=== PATIENT | female | born 1975 | race Caucasian/White ===

== ENCOUNTER 2018-08-01 08:29 | Emergency (ER) | payer OTHER ==
[~2018-08-01] VITALS: Ht 160 cm; Wt 70.8 kg
[~2018-08-01 08:29] MED LIST: MOTRIN800 MG PO; NEURONTIN300 MG PO
[2018-08-01] MEDS ORDERED: CLEOCIN HCL300 MG (08:55)
[2018-08-01] MEDS ORDERED: STERILE SALINE126 ML (08:55)
== END 2018-08-01 15:33 | disposition home or self-care (01) ==
LOC: ER 08:29
DX: K52.9 Noninfective gastroenteritis and colitis, unspecified (principal)

== ENCOUNTER 2019-08-25 08:23 | Emergency (ER) | payer OTHER ==
[~2019-08-25] VITALS: Ht 160 cm; Wt 75.3 kg
[~2019-08-25 08:23] MED LIST changes: +CLEOCIN HCL300 MG; +STERILE SALINE126 ML
== END 2019-08-25 11:19 | disposition home or self-care (01) ==
LOC: ER 08:23
DX: K58.9 Irritable bowel syndrome, unspecified (principal)

== ENCOUNTER 2022-06-19 18:49 | Emergency (ER) | payer OTHER ==
[~2022-06-19] VITALS: Ht 160 cm; Wt 77.1 kg
[2022-06-20] MEDS ORDERED: LEVSIN/SL0.125 MG SL (02:13)
[2022-06-20] MEDS ORDERED: ZOFRAN8 MG PO (02:13)
[2022-06-20] MEDS ORDERED: PEPCID40 MG PO (02:13)
[2022-06-20] MEDS ORDERED: INTESTINEX680 M1 PO (02:13)
== END 2022-06-20 02:20 ==
LOC: ER 18:49
DX: K52.9 Noninfective gastroenteritis and colitis, unspecified (principal)

== ENCOUNTER 2024-02-24 18:55 | Emergency (ER) | payer OTHER ==
[~2024-02-24] VITALS: Ht 160 cm; Wt 77.1 kg
[~2024-02-24 18:55] MED LIST changes: +INTESTINEX680 M1 PO; +LEVSIN/SL0.125 MG SL; +PEPCID40 MG PO; +ZOFRAN8 MG PO
[2024-02-24] MEDS ORDERED: FAMOTIDINE/PF 20 MG in 0.9 % SODIUM CHLORIDE 8 ML IV PUSH STA (19:44)
[2024-02-24] MEDS ORDERED: ONDANSETRON HCL 2 MG/ML VIAL IV ONE (19:45)
[2024-02-24] MEDS ORDERED: 0.9 % SODIUM CHLORIDE 1,000 ML IV SCH (19:45)
[2024-02-24] MEDS ORDERED: KETOROLAC TROMETHAMINE 30 MG VIAL IV ONE (19:45)
[2024-02-24] MEDS ORDERED: FAMOTIDINE/PF 20 MG/2 ML VIAL ONE (20:01)
[2024-02-24] MEDS ORDERED: ONDANSETRON HCL 2 MG/ML VIAL ONE (20:01)
[2024-02-24] MEDS ORDERED: KETOROLAC TROMETHAMINE 30 MG VIAL ONE (20:01)
[2024-02-24 20:35] LABS: HEMATOCRIT 41.9 % (36.0-45.00); HEMOGLOBIN 13.6 g/dL (12.0-15.00); MEAN CELL VOLUME 91.1 fL (80.00-100.00); MEAN CORPUSCULAR HEMOGLOBIN 29.6 pg (27.00-32.0); MEAN CORPUSCULAR HGB CONC 32.5 g/dl (32.0-36.0); PLATELET COUNT 310 K/uL (150-450); RED CELL DISTRIBUTION WIDTH 13.6 % (11.5-14.5)
[2024-02-24 20:51] LABS: INR 0.97; PARTIAL THROMBOPLASTIN TIME 29.7 SECONDS (22.0-34.0); PROTHROMBIN TIME 10.6 SECONDS (9.0-11.5)
[2024-02-24 21:01] LABS: ALBUMIN 4.3 gm/dL (3.4-5.0); BILIRUBIN TOTAL 0.4 mg/dL (0.3-1.2); CALCIUM 9.3 mg/dL (8.5-10.1); CREATININE SERUM 0.77 mg/dL (0.55-1.02); GFR 80.01; GLOBULINA 4.4 G/DL (2.4-3.5); POTASSIUM 3.61 mEq/L (3.5-5.1); TOTAL PROTEIN 8.7 gm/dL (6.4-8.2)
[2024-02-24 21:15] LABS: PH,URINE 5.5 (5.0-8.0); URINE APPEARANCE Clear; URINE BILIRRUBIN Negative (NEGATIVE); URINE BLOOD Trace; URINE COLOR Yellow; URINE GLUCOSE Negative (NEGATIVE); URINE KETONE Negative (NEGATIVE); URINE LEUKOCYTE Negative; URINE NITRATE Negative; URINE PROTEIN Negative (NEGATIVE); URINE UROBILINOGEN 0.2 E.U./dl
[2024-02-24 21:18] LABS: URINE BACTERIA 64.2 uL (0.0-1933); URINE EPITHELIAL CELLS 8.8 uL (0.0-38.8); URINE RBC 9.7 uL (0.0-20.8); URINE WBC 2.1 uL (0.0-23.2)
[2024-02-24] MEDS ORDERED: LEVSIN/SL0.125 MG SL (23:00)
[2024-02-24] MEDS ORDERED: PEPCID AC20 MG PO (23:00)
[2024-02-24] MEDS ORDERED: INTESTINEX680 M1 PO (23:00)
[2024-02-24] MEDS ORDERED: METRONIDAZOLE500 MG PO (23:00)
[2024-02-24] MEDS ORDERED: CIPRO500 MG PO (23:00)
== END 2024-02-24 23:19 | disposition home or self-care (01) ==
LOC: ER 18:57
PROVIDERS: General Practice
DX: K52.89 Other specified noninfective gastroenteritis and colitis (principal); R10.31 Right lower quadrant pain; Z88.0 Allergy status to penicillin; Z20.822 Contact with and (suspected) exposure to COVID-19